=== PATIENT | female | born 1995 | race Hispanic/Latino ===

== ENCOUNTER → 2023-06-10 | Outpatient (CLI) | payer BC | END | disposition home or self-care (01) | LOC: RAH 07:23 | PROVIDERS: ATTEND Internal Medicine | DX: R14.0 Abdominal distension (gaseous) (principal) | CPT/HCPCS: 78264; A9541 ==

== ENCOUNTER → 2024-09-20 | Emergency (ER) | payer BC, OTHER ==
[~2024-09-20] MED LIST: PRED20TA3 PO; VALA100031 PO
== END | disposition left against medical advice (07) ==
LOC: EDH 13:22
DX: M54.50 Low back pain, unspecified (principal); Z53.21 Procedure and treatment not carried out due to patient leaving prior to being seen by health care provider

== ENCOUNTER 2024-11-02 13:32 | Emergency (ER) | payer OTHER ==
[~2024-11-02] VITALS: Ht 157.5 cm; Wt 81.6 kg
[2024-11-02 13:33] VITALS: TEMP 98.4
--- NOTE | 2024-11-02 13:38 | NUR ---
pt to ct with rn.
--- NOTE | 2024-11-02 13:42 | NUR ---
pt back from ct with rn.
--- NOTE | 2024-11-02 13:54 | HMCIMG ---
CT HEAD WITHOUT CONTRAST INDICATION: Facial weakness TECHNIQUE: Noncontrast axial helical CT images from the vertex through the skull base using 5 mm slice thickness without contrast material. CT was performed with one or more of the following dose reduction techniques: Automated exposure control, adjustment of the mA and/or kV according to patient size, or use of iterative reconstruction technique. COMPARISON: None FINDINGS: The cerebral and cerebellar hemispheres are age-appropriate in appearance. No evidence for abnormal extra-axial fluid collections or masses. The ventricles and sulci are normal in size and configuration. No evidence for intracranial parenchymal, epidural, or subdural hemorrhage, mass effect or midline shift. The avila-white matter differentiation is well preserved. No secondary evidence to suggest acute ischemia. The brainstem and cerebellum appear normal. The visualized orbits appear unremarkable. The visible paranasal sinuses and mastoid air cells are clear. The calvarium appears normal. IMPRESSION: No acute intracranial process identified.
[2024-11-02 14:10] VITALS: BP 127/87; PULSE 98; RESP 16; O2SAT 99
--- NOTE | 2024-11-02 14:41 | ERN ---
General Chief Complaint: Stroke Symptoms Stated Complaint: LT FACIAL WEAKNESS Time Seen by MD: 13:35 History of Present Illness Initial Comments 29 Year old female who presents for left-sided facial droop beginning this morning upon awakening. Patient was facial droop that includes the forehead, left eye and left mouth. She denies any other focal neurologic infiltrates. She denies any paresthesias or anesthesias. She reports that she was difficulty controlling the mouth in the high. No recent illness, no ear pain, no other complaints. Nontoxic in appearance. Past Medical History Past Medical History: No Pertinent History Past Surgical History: None ROS Dictation CONSTITUTIONAL: No chills, no fever, no weakness, no diaphoresis, no malaise. HEAD/FACE: No signs of trauma. EENT: No eye pain, no blurred vision, no tearing, no double vision, no ear pain, no ear discharge, no nose pain, no nasal congestion, no throat pain, no throat swelling, no mouth pain. RESPIRATORY: No cough, no orthopnea, no SOB, no stridor, no wheezing. CARDIOVASCULAR: No chest pain, no edema, no palpitations, no syncope. GASTROINTESTINAL/ABDOMINAL: No abdominal pain, no constipation, no diarrhea, no nausea, no vomiting. GENITOURINARY: No abnormal discharge, no dysuria, no frequent urination, no hematuria. No complaints of pain in the genitals. MUSCULOSKELETAL: No back pain, no gout, no joint pain, no joint swelling, no muscle pain, no muscle stiffness, no neck pain. INTEGUMENTARY: No change in color, no change in hair/nails, no dryness, no lesion, no lumps, no rash. NEUROLOGICAL/PSYCH: Left facial droop HEMATOLOGIC/LYMPHATIC: Not anemic, no history of blood clots, no apparent bleeding, no bruising, glands not swollen. All Systems Negative, Except as Noted. Physical Exam Physical Exam Dictation VITAL SIGNS: Reviewed. GENERAL APPEARANCE: Alert, oriented x3, no acute distress HEAD AND FACE: Non-traumatic. EYES: PERRL, pink conjunctivas, eyelid no trauma, anterior chamber clear. EARS: Pinnas intact and no signs of trauma or erythema. Ear canals clear and no discharge. TMs no erythema. NOSE: No discharge, no bleeding. OROPHARYNX: Mouth normal, teeth no caries, tongue pink. Pharynx clear, no erythema. Tonsils no exudates, no abscesses noted. Mucous membrane moist. NECK: Supple, non-tender, no thyromegaly, no masses, no JVD, no bruits. BREAST: Deferred. CHEST: No tenderness, no crepitus, no paradoxical movement, no retractions. LUNGS: Clear, well-ventilated, symmetric, no rales, no wheezing, no rhonchi, no stridor, good breath sounds bilaterally. HEART: Regular rate, regular rhythm, no murmur, no gallops. VASCULAR: No peripheral edema. ABDOMEN: Soft, positive bowel sounds, nondistended, no guarding, nontender, no rebound, no masses no hepatomegaly, no splenomegaly, no Livingston's sign, no kelly ias. RECTAL: Deferred. GENITAL: Deferred. NEUROLOGICAL: Normal speech, gross motor function intact, gross sensory function intact. Left facial droop which includes the forehead MUSCULOSKELETAL: Neck nontender, full range of motion, back nontender, full range of motion. EXTREMITIES: Nontender, full range of motion. SKIN: Color pink, dry, no turgor, no rash, no lacerations, no abrasions, no contusions. LYMPHATICS: Deferred. NIH STROKE SCALE: NIH STROKE SCALE Response (Comments) Value Level of Consciousness Alert 0 Ask patient month and their age Answers both correct 0 Command to open eyes, make fist and let go Obeys both correct 0 Best gaze (horizontal eye movement) Normal 0 Visual Field Testing No Visual Field Loss 0 Facial Paresis Normal / Symmetrical 0 Motor Function - Left Arm Normal 0 Motor Function - Right Arm Normal 0 Motor Function - Left Leg Normal 0 Motor Function - Right Leg Normal 0 Limb Ataxia No Ataxia 0 Sensory-pin prick to arms, legs, trunk and face Mild to Moderate Decrease 1 Best Language (describe picture, name items and read) No Aphasia 0 Dysarthria (read several words) Normal Articulation 0 Extinction and Inattention Normal 0 Total Results Laboratory and Microbiology Lab and Micro Result Laboratory Tests Test 11/02/24 13:38 Whole Blood Glucose 95 MG/DL (70-110) MDM CC: Left facial droop Historian: Patient Comorbidities: None Limitations by social determinants of health: None Differential diagnosis: Hall's palsy versus stroke Vital signs are stable Patient initially came in with a left facial droop. Stroke protocol began. She went to the CT scanner and a CT head without contrast without any abnormalities. Initial evaluation was quite subtle. She had a little bit of a left-sided facial droop difficulty closing the left eye, but it appeared that she can control the left forehead. When I re-evaluated the patient after the CT scan she has a much more clear Hall's palsy. It appears to include the forehead as well. No further labs or studies indicated. Symptoms most consistent with a Hall's palsy. Plan: We will DC with prednisone and valacyclovir. Recommend supportive care and PCP follow up. ED Course Orders Procedure Category Date Status Time Ct Head/Brain W/O CT 11/02/24 Resulted Contrast 13:40 Vital Signs Date Time Temp Pulse Resp B/P (MAP) Pulse Ox O2 Delivery O2 Flow Rate FiO2 11/02/24 14:10 98 16 127/87 99 Room Air* 0 21 11/02/24 13:33 98.4 104 18 155/103 98 Room Air DX & DISP Disposition: Discharge Departure Impression: Primary Impression: Hall palsy Condition: Stable Scripts Valacyclovir HCl (Valacyclovir) 1,000 Mg Tablet 1 TAB PO TID for 7 Days, #21 TAB 0 Refills Prov: ANGELA ROWE DO 11/02/24 Prednisone (Prednisone) 20 Mg Tablet 1 TAB PO BID for 5 Days, #10 TAB 0 Refills Prov: ANGELA ROWE DO 11/02/24 Additional Instructions: Your symptoms are consistent with a Hall's palsy. This is temporary weakness or paralysis of the muscles on the side of the face due to inflammation of the facial nerve. This condition is usually self-limited and most people recover c ompletely within weeks to a few months. I have prescribed prednisone, which is an anti-inflammatory steroid. Please take the entire course as prescribed. I have prescribed valacyclovir, which is an antiviral medication. Please take the entire course. As we discussed, be sure to take care of your eye. If you are unable to completely close the eyelid, use artificial tears during the day to keep your eye moist. Protect your eye at night with the an eye patch or take a closed. massaged the affected side of your face regularly. I recommend gentle facial exercises to help stimulate the nerve and maintain muscle tone. Please follow up with your primary doctor next week for re-evaluation. As we discussed, most people began to improve in 2-3 weeks and most people have full recovery within a month or two. Please immediately return to the emergency department if you have any concerning symptoms such as your arms or legs not working, altered mentation, persistent vomiting, or any other concerning symptom. Referrals: SINGH BLACKBURN MD (PCP) ANGELA ROWE DO Nov 02, 2024 14:41
[2024-11-02] MEDS ORDERED: VALA100031 PO (14:48)
[2024-11-02] MEDS ORDERED: PRED20TA3 PO (14:48)
[2024-11-02] MEDS: predniSONE 20 MG TABLET PO ONE (15:00)
== END 2024-11-02 15:08 | disposition home or self-care (01) ==
LOC: EDH 13:32
DX: G51.0 Bell's palsy (principal); Z79.899 Other long term (current) drug therapy
CPT/HCPCS: 70450; 82948; 99284